=== PATIENT | male | born 2000 | race Caucasian/White ===

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

== ENCOUNTER → 2019-11-15 | Outpatient (CLI) | payer OTHER | LOC: LAB 11:49 | PROVIDERS: ATTEND Nurse Practitioner Family | DX: U07.1 COVID-19 (principal) | CPT/HCPCS: 87635 ==